=== PATIENT | male | born 1935 | race Caucasian/White ===

== ENCOUNTER 2017-01-30 00:22 | Emergency (ER) | payer MEDICAID, MEDICARE ==
[~2017-01-30] VITALS: Ht 167.6 cm; Wt 72.6 kg
[2017-01-30] MEDS ORDERED: DIPHTH,PERTUSS(ACELL),TET TOX 0.5 ML DISP.SYRIN. VAX IM ONE (02:00)
--- NOTE | 2017-01-30 02:47 | RAD ---
CT HEAD AND CERVICAL SPINE WITHOUT CONTRAST History: Fall, pain within the head and neck. Comparison: None. Procedure: Axial images are obtained of the head from the skull base through the vertex without IV contrast. Noncontrast helical CT of the cervical spine was performed. Axial, sagittal, and coronal reconstructions were obtained. PQRS compliance statement: One or more of the following individualized dose reduction techniques were utilized for this examination: 1. Automated exposure control 2. Adjustment of the mA and/or kV according to patient size 3. Use of iterative reconstruction technique Head Findings: The ventricles and sulci are normal for the patient's age. No mass-effect, midline shift, hemorrhage or extra-axial fluid collection is identified. Periventricular and subcortical white matter low-attenuation is present, nonspecific although suggestive of chronic microvascular ischemia. Bone windows demonstrate no significant calvarial abnormality. Trace mucosal thickening is present in the visualized paranasal sinuses. Mastoid air cells are well aerated. Cervical Spine Findings: There is no evidence of acute fracture or dislocation. Normal cervical lordosis and alignment is maintained. Vertebral body heights are maintained. Posterior elements are intact. Prominent degenerative changes are present throughout. Visualized soft tissues of the neck demonstrate no acute finding. The visualized lung apices are clear. IMPRESSION: 1. No acute intracranial abnormality. Chronic findings present. 2. No acute fracture of the cervical spine. Degenerative changes present throughout. Electronically signed by: Nella Rahman MD (01/30/2017 2:44 AM)
[2017-01-30 02:54] VITALS: BP 121/65
--- NOTE | 2017-01-30 03:00 | PHYS DOC ---
Past Medical History Past Medical History: CAD, Constipation, CVA, Dementia, Depression, Diabetes- Type II, High Cholesterol, Hypertension, TIA Additional Past Medical Histor: chronic gastritis,allergies,pvd,osteoarthritis, Past Surgical History: No Surgical History Alcohol Use: None Drug Use: None Adult General Chief Complaint Chief Complaint: MECHANICAL FALL HPI HPI 81-year-old male sent from [facility] evaluation of minor head injury. Patient fell to floor and struck the back of his head. He has a very small abrasion. No soft tissue swelling. Patient's mental status has been baseline he is alert and communicative cooperative and has no complaints. He was sent for evaluation out of an abundance of caution. Review of Systems Review of Systems Constitutional: Denies fever or chills [] Eyes: Denies change in visual acuity, redness, or eye pain [] HENT: Denies nasal congestion or sore throat [] Respiratory: Denies cough or shortness of breath [] Cardiovascular: No additional information not addressed in HPI [] GI: Denies abdominal pain, nausea, vomiting, bloody stools or diarrhea [] : Denies dysuria or hematuria [] Musculoskeletal: Denies back pain or joint pain [] Integument: Denies rash or skin lesions [] Neurologic: Denies headache, focal weakness or sensory changes [] Endocrine: Denies polyuria or polydipsia [] Current Medications Current Medications Current Medications Medications (Trade) Dose Ordered Sig/Steve Start Time Stop Time Status Last Admin Dose Admin Diphtheria/ Tetanus/Acell Pertussis (Boostrix) 0.5 ml ONCE ONCE 01/30/17 02:00 01/30/17 02:01 DC 01/30/17 03:18 0.5 ML Allergies Allergies Allergies Coded Allergies Type Severity Reaction Last Updated Verified cholestyramine Allergy Unknown unknown 01/30/17 Yes rosuvastatin Allergy Unknown unknown 01/30/17 Yes simvastatin Allergy Unknown unknown 01/30/17 Yes Physical Exam Physical Exam Elderly male smiling comfortable appearing no acute distress. No scalp hematoma. 2 x 2 centimeter trace abrasion parieto-occipital scalp with no hematoma or bony tenderness or crepitus. Nonfocal neurologic exam. Totally benign exam with no pathologic findings. Normal TMs bilaterally with no evidence of hemotympanum. No Reyes sign. Normal painless range of motion of C- spine Constitutional: Well developed, well nourished, no acute distress, non-toxic appearance. [] HENT: Normocephalic, atraumatic, bilateral external ears normal, oropharynx moist, no oral exudates, nose normal. [] Eyes: PERRLA, EOMI, conjunctiva normal, no discharge. [] Neck: Normal range of motion, no tenderness, supple, no stridor. [] Cardiovascular:Heart rate regular rhythm, no murmur [] Lungs & Thorax: Bilateral breath sounds clear to auscultation [] Abdomen: Bowel sounds normal, soft, no tenderness, no masses, no pulsatile masses. [] Skin: Warm, dry, no erythema, no rash. [] Back: No tenderness, no CVA tenderness. [] Extremities: No tenderness, no cyanosis, no clubbing, ROM intact, no edema. [] Neurologic: Alert and oriented X 3, normal motor function, normal sensory function, no focal deficits noted. [] Psychologic: Affect normal, judgement normal, mood normal. [] Current Patient Data Vital Signs Vital Signs Date Time Temp Pulse Resp B/P (MAP) Pulse Ox O2 Delivery O2 Flow Rate FiO2 01/30/17 02:54 66 18 121/65 (83) 95 Room Air 01/30/17 00:25 98.4 98.4 EKG EKG [] Radiology/Procedures Radiology/Procedures [] Course & Med Decision Making Course & Med Decision Making Pertinent Labs and Imaging studies reviewed. (See chart for details) Status post minor head injury. No evidence of postconcussive syndrome. Nonfocal neurologic exam no evidence of skull fracture or C-spine injury. CT of the head and C-spine negative. No further workup or treatment indicated. Patient agrees with outpatient follow-up. Strict return precautions given. [] Dragon Disclaimer Dragon Disclaimer This electronic medical record was generated, in whole or in part, using a voice recognition dictation system. Departure Departure Impression: Primary Impression: Minor head injury Additional Impressions: Scalp contusion Scalp abrasion Disposition: 01 HOME, SELF-CARE Condition: STABLE Referrals: RADHA FRANKLIN MD (PCP) Patient Instructions: Facial or Scalp Contusion, [id number], Head Injury, Adult Additional Instructions: You have suffered a minor head injury this evening. He had a contusion or bruise G her scalp. A small abrasion on the surface of your scalp prompted us to update your tetanus shot. The tetanus shot also include coverage for diphtheria which means whooping cough and this Will be good for 5 years so make a note on your medical record.. Follow-up with your doctor tomorrow and return immediately for new severe or worsening symptoms Problem Qualifiers GILDA MILLER MD Jan 30, 2017 02:59
== END 2017-01-30 04:11 | disposition home or self-care (01) ==
LOC: ER 00:22
DX: S00.03XA Contusion of scalp, initial encounter (principal); S00.01XA Abrasion of scalp, initial encounter; I25.10 Atherosclerotic heart disease of native coronary artery without angina pectoris; F03.90 Unspecified dementia, unspecified severity, without behavioral disturbance, psychotic disturbance, mood disturbance, and anxiety; F32.9 Major depressive disorder, single episode, unspecified; E11.9 Type 2 diabetes mellitus without complications; E78.00 Pure hypercholesterolemia, unspecified; I10 Essential (primary) hypertension; I73.9 Peripheral vascular disease, unspecified; M19.90 Unspecified osteoarthritis, unspecified site; Z88.8 Allergy status to other drugs, medicaments and biological substances; Z86.73 Personal history of transient ischemic attack (TIA), and cerebral infarction without residual deficits; W01.198A Fall on same level from slipping, tripping and stumbling with subsequent striking against other object, initial encounter; Y93.89 Activity, other specified; Y92.89 Other specified places as the place of occurrence of the external cause; Y99.8 Other external cause status
CPT/HCPCS: 70450; 72125; 90471; 90715; 99284-25

== ENCOUNTER 2017-05-05 08:33 | Emergency (ER) | payer MEDICARE ==
[~2017-05-05] VITALS: Ht 167.6 cm; Wt 72.6 kg
--- NOTE | 2017-05-05 09:02 | EKG ---
[facility] [address] [place] [address] Test Date: 2017-05-05 Test Time: 08:52:44 Pat Name: RYLAN BAPTISTE Department: Room: Gender: [employer]ic: : 1935 Requested By: MILA LAINEZ Order Number: [id number] Reading MD: Measurements Intervals [place] Rate: 59 P: MD: QRS: -4 QRSD: 86 T: -27 QT: 420 QTc: 420 Interpretive Statements ATRIAL FIBRILLATION LEFTWARD AXIS QRS(T) CONTOUR ABNORMALITY CANNOT RULE OUT ANTEROSEPTAL MYOCARDIAL DAMAGE CONSISTENT WITH INFERIOR INFARCT AGE UNDETERMINED RI6.01 Unconfirmed report No previous ECG available for comparison
--- NOTE | 2017-05-05 09:24 | RAD ---
Portable chest, 05/05/2017: History: Syncope There has been a previous median sternotomy. The depth of inspiration is suboptimal with minimal right basilar atelectasis. The heart size and pulmonary vascularity are within normal limits. No left lung infiltrate is seen. There is no evidence of pleural fluid. Mild degenerative changes are present in the spine. IMPRESSION: Suboptimal depth of inspiration with minimal right basilar atelectasis.
[2017-05-05 09:31] LABS: BASO % 1 % (0-3); EOS % 3 % (0-3); HEMATOCRIT 40.3 % (39.0-53.0); HEMOGLOBIN 14.3 g/dL (13.0-17.5); LYMPH % 36 % (24-48); MEAN CORPUSCULAR HEMOGLOBIN 33 pg (25-35); MEAN CORPUSCULAR HGB CONC 36 g/dL (31-37); MEAN CORPUSCULAR VOLUME 93 fL (79-100); MONO % 10 % (0-9); NEUT % 51 % (31-73); PLATELET COUNT 171 x10^3/uL (140-400); RED BLOOD COUNT 4.32 x10^6/uL (4.30-5.70); RED CELL DISTRIBUTION WIDTH 13.4 % (11.5-14.5); WHITE BLOOD COUNT 5.5 x10^3/uL (4.0-11.0)
--- NOTE | 2017-05-05 09:43 | PHYS DOC ---
Past Medical History Past Medical History: CAD, Constipation, CVA, Dementia, Depression, Diabetes- Type II, High Cholesterol, Hypertension, TIA Additional Past Medical Histor: chronic gastritis,allergies,pvd,osteoarthritis, Past Surgical History: No Surgical History Alcohol Use: None Drug Use: None Adult General Chief Complaint Chief Complaint: Fall HPI HPI Patient is a 82 year old male who presents with injuries from a fall. Patient was reportedly at his care home in his room with his roommate when he fell to the ground and struck his head. Patient did have a loss of consciousness for several seconds. It is unclear if the patient had a syncopal episode or had loss of consciousness after the fall. There are no blood thinners on the patient 's medical record, the patient is unable to give a clear history secondary to his dementia. Patient did not ambulate after the fall. EMS reports A. fib on the monitor. He has a left forearm laceration that is dressed upon arrival. Patient has not complaining of pain. Review of Systems Review of Systems History of systems lacking due to patient's history of dementia Current Medications Current Medications Current Medications Medications (Trade) Dose Ordered Sig/Steve Start Time Stop Time Status Last Admin Dose Admin Ketamine HCl 140 mg 1X ONCE 05/05/17 09:45 05/05/17 09:46 DC 05/05/17 09:51 140 MG Ondansetron HCl (Zofran) 4 mg 1X ONCE 05/05/17 11:15 05/05/17 11:16 DC Allergies Allergies Allergies Coded Allergies Type Severity Reaction Last Updated Verified cholestyramine Allergy Unknown unknown 01/30/17 Yes rosuvastatin Allergy Unknown unknown 01/30/17 Yes simvastatin Allergy Unknown unknown 01/30/17 Yes Physical Exam Physical Exam Constitutional: Well developed, well nourished, no acute distress, elderly, confused HENT: Normocephalic, goose-egg edema of the left forehead with small superficial laceration and 3 cm bleeding laceration non-gaping laceration just proximal to left lateral eyebrow, bilateral external ears normal, oropharynx moist, no oral exudates, nose normal. [] Eyes: PERRLA, EOMI, conjunctiva normal, no discharge. [] Neck: Normal range of motion, no tenderness, supple, no stridor. [] Cardiovascular:Heart rate irregular with regular rhythm, no murmur [] Lungs & Thorax: Bilateral breath sounds clear to auscultation [] Abdomen: Bowel sounds normal, soft, no tenderness, no masses, no pulsatile masses. [] Skin: Warm, dry, no erythema, no rash. [] Back: No midline stepoffs or tenderness, no CVA tenderness. [] Extremities: No tenderness, no cyanosis, no clubbing, ROM intact, no edema.lifts both legs off the bed Neurologic: Alert but not oriented, normal motor function, normal sensory function, intermittently slurred speech. He is beligerent in speech at times, somewhat agressive Current Patient Data Vital Signs Vital Signs Date Time Temp Pulse Resp B/P (MAP) Pulse Ox O2 Delivery O2 Flow Rate FiO2 05/05/17 10:25 97.8 61 18 97 05/05/17 08:39 181/79 (113) Room Air Lab Values Laboratory Tests Test 05/05/17 09:20 05/05/17 09:56 White Blood Count 5.5 x10^3/uL (4.0-11.0) Red Blood Count 4.32 x10^6/uL (4.30-5.70) Hemoglobin 14.3 g/dL (13.0-17.5) Hematocrit 40.3 % (39.0-53.0) Mean Corpuscular Volume 93 fL (79-100) Mean Corpuscular Hemoglobin 33 pg (25-35) Mean Corpuscular Hemoglobin Concent 36 g/dL (31-37) Red Cell Distribution Width 13.4 % (11.5-14.5) Platelet Count 171 x10^3/uL (140-400) Neutrophils (%) (Auto) 51 % (31-73) Lymphocytes (%) (Auto) 36 % (24-48) Monocytes (%) (Auto) 10 % (0-9) H Eosinophils (%) (Auto) 3 % (0-3) Basophils (%) (Auto) 1 % (0-3) Neutrophils # (Auto) 2.8 x10^3uL (1.8-7.7) Lymphocytes # (Auto) 2.0 x10^3/uL (1.0-4.8) Monocytes # (Auto) 0.6 x10^3/uL (0.0-1.1) Eosinophils # (Auto) 0.2 x10^3/uL (0.0-0.7) Basophils # (Auto) 0.0 x10^3/uL (0.0-0.2) Prothrombin Time 12.1 SEC (11.7-14.0) Prothrombin Time INR 1.0 (0.8-1.1) Sodium Level 140 mmol/L (136-145) Potassium Level 3.5 mmol/L (3.5-5.1) Chloride Level 100 mmol/L (98-107) Carbon Dioxide Level 29 mmol/L (21-32) Anion Gap 11 (6-14) Blood Urea Nitrogen 10 mg/dL (8-26) Creatinine 0.8 mg/dL (0.7-1.3) Estimated GFR (Cockcroft-Gault) 92.5 BUN/Creatinine Ratio 13 (6-20) Glucose Level 77 mg/dL (70-99) Calcium Level 9.7 mg/dL (8.5-10.1) Magnesium Level 1.7 mg/dL (1.8-2.4) L Total Bilirubin 0.6 mg/dL (0.2-1.0) Aspartate Amino Transferase (AST) 35 U/L (15-37) Alanine Aminotransferase (ALT) 55 U/L (16-63) Alkaline Phosphatase 43 U/L (46-116) L Ammonia < 10 mcmol/L (11-34) L Troponin I Quantitative < 0.017 ng/mL (0.000-0.055) CZ-Tpi-C-Type Natriuretic Peptide 243 pg/mL (0-449) Total Protein 7.3 g/dL (6.4-8.2) Albumin 4.0 g/dL (3.4-5.0) Albumin/Globulin Ratio 1.2 (1.0-1.7) Laboratory Tests 05/05/17 09:20 Laboratory Tests 05/05/17 09:56 EKG EKG 59 bpm, irregular, normal axis, normal intervals, likely A. fib, nonischemic T waves and interpreted by me[] Radiology/Procedures Radiology/Procedures Chest x-ray:IMPRESSION: Suboptimal depth of inspiration with minimal right basilar atelectasis. CT head/ neck: CT head without contrast, 05/05/2017: History: Fall, head trauma, dementia Comparison is made to a study from 01/30/2017. There is a moderate scalp hematoma in the left frontal region. No underlying fracture is identified. There are new small bilateral subdural hematomas over the cerebral convexities. On the coronal images these abnormal extra-axial densities measure approximately 5 mm in greatest thickness laterally on both sides.. There is a larger component of subdural blood along the right tentorium measuring 11 mm in greatest craniocaudad dimension. There is mild associated decrease in size of the lateral ventricles, more so on the right, compared to the 01/30/2017 study. There is a very slight right to left shift of the midline structures. Patchy deep white matter lucencies are again noted compatible with chronic ischemic change. There is moderate underlying cerebral atrophy. IMPRESSION: 1. Small acute subdural hematomas have developed over both cerebral convexities with extension along the right tentorium as described above. 2. Minimal associated lateral ventricular effacement and slight right to left midline shift. CT of the cervical spine without contrast, 05/05/2017: Noncontrast scans were obtained with multiplanar reconstructions produced. There is multilevel disc space narrowing and moderate marginal spurring, most severe at the C5-6 and C6-7 levels. There are moderate hypertrophic degenerative changes involving the facet joints bilaterally at multiple levels. The combination of findings is causing mild central spinal stenosis and foraminal stenosis at multiple levels. There is mild calcific plaquing at the carotid bifurcations. IMPRESSION: 1. Moderate multilevel degenerative change. 2. No acute bony abnormality is detected. Note: The findings were called to personnel in the [facility] ER at 10:50 AM on 05/05/2017. PQRS Compliance Statement: One or more of the following individualized dose reduction techniques were utilized for this examination: 1. Automated exposure control 2. Adjustment of the mA and/or kV according to patient size 3. Use of iterative reconstruction technique DICTATED and SIGNED BY: EMELIA KAUR MD DATE: 05/05/17 1033 CC: RADHA ZAPATA MD; MILA LAINEZ MD ~ Indication: left eyebrow laceration Procedure: The patient was placed in the appropriate position and it was glued with dermabond. Total repaired wound length: 3cm. Other Items: The patient tolerated the procedure well. Complications: none. Course & Med Decision Making Course & Med Decision Making Pertinent Labs and Imaging studies reviewed. (See chart for details) Pt monitored, ekg/labs/cxr/ct head and neck performed. Pt appears to be in no distress, no blood thinners. Lac closed with glue as pt is moving and difficult to keep still. 80 attempts to get the patient to the CT scanner but he would not lay still. Therefore we proceeded with sedation with ketamine. 1 mg/kg slow push of ketamine was given by me. Patient had Mallampati of 3, ASA of 2. Pt tolerated the sedation well and we're able to get the CT scan. It showed that he had bilateral subdural hematomas as well as supratentorial bleed on the right side. I spoke with neurosurgery here at our facility, Dr. Peralta. He believes the patient will require higher level of care [facility] I spoke with [facility] and they accepted the patient via the transfer nurse to Dr. Graciela Landa, trauma surgeon. We contacted EMS for transport, they came to take the patient to . I informed Dr. Zapata, the patient's PCP as well as patient's son, Sb Corral. He will be heading directly to . Total critical care time: 80 minutes Dragon Disclaimer Dragon Disclaimer This electronic medical record was generated, in whole or in part, using a voice recognition dictation system. Departure Departure Impression: Primary Impression: Closed head injury Additional Impressions: Subdural hematoma Bleeding in brain Disposition: 05 TRANSFER OTHER Condition: CRITICAL Referrals: RADHA ZAPATA MD (PCP) Problem Qualifiers MILA LAINEZ MD May 05, 2017 09:43
[2017-05-05] MEDS ORDERED: KETAMINE HCL 500 MG/10 ML VIAL. IV ONE (09:45)
[2017-05-05 10:16] LABS: CALCIUM 9.7 mg/dL (8.5-10.1); CREATININE 0.8 mg/dL (0.7-1.3); GFR 92.5; POTASSIUM 3.5 mmol/L (3.5-5.1)
[2017-05-05 10:19] LABS: PROTHROMBIN TIME PATIENT 12.1 SEC (11.7-14.0)
[2017-05-05 10:24] LABS: ALBUMIN/GLOBULIN RATIO 1.2 (1.0-1.7); MAGNESIUM 1.7 mg/dL (1.8-2.4); TOTAL BILIRUBIN 0.6 mg/dL (0.2-1.0); TOTAL PROTEIN 7.3 g/dL (6.4-8.2)
--- NOTE | 2017-05-05 10:52 | RAD ---
CT head without contrast, 05/05/2017: History: Fall, head trauma, dementia Comparison is made to a study from 01/30/2017. There is a moderate scalp hematoma in the left frontal region. No underlying fracture is identified. There are new small bilateral subdural hematomas over the cerebral convexities. On the coronal images these abnormal extra-axial densities measure approximately 5 mm in greatest thickness laterally on both sides.. There is a larger component of subdural blood along the right tentorium measuring 11 mm in greatest craniocaudad dimension. There is mild associated decrease in size of the lateral ventricles, more so on the right, compared to the 01/30/2017 study. There is a very slight right to left shift of the midline structures. Patchy deep white matter lucencies are again noted compatible with chronic ischemic change. There is moderate underlying cerebral atrophy. IMPRESSION: 1. Small acute subdural hematomas have developed over both cerebral convexities with extension along the right tentorium as described above. 2. Minimal associated lateral ventricular effacement and slight right to left midline shift. CT of the cervical spine without contrast, 05/05/2017: Noncontrast scans were obtained with multiplanar reconstructions produced. There is multilevel disc space narrowing and moderate marginal spurring, most severe at the C5-6 and C6-7 levels. There are moderate hypertrophic degenerative changes involving the facet joints bilaterally at multiple levels. The combination of findings is causing mild central spinal stenosis and foraminal stenosis at multiple levels. There is mild calcific plaquing at the carotid bifurcations. IMPRESSION: 1. Moderate multilevel degenerative change. 2. No acute bony abnormality is detected. Note: The findings were called to personnel in the [facility] ER at 10:50 AM on 05/05/2017. PQRS Compliance Statement: One or more of the following individualized dose reduction techniques were utilized for this examination: 1. Automated exposure control 2. Adjustment of the mA and/or kV according to patient size 3. Use of iterative reconstruction technique
[2017-05-05 11:10] VITALS: BP 156/61
[2017-05-05] MEDS ORDERED: ONDANSETRON PF 4 MG/2 ML VIAL. IV ONE (11:15)
== END 2017-05-05 11:20 | disposition short-term general hospital (02) ==
LOC: ER 08:33
DX: S06.5X9A Traumatic subdural hemorrhage with loss of consciousness of unspecified duration, initial encounter (principal); S01.112A Laceration without foreign body of left eyelid and periocular area, initial encounter; S51.812A Laceration without foreign body of left forearm, initial encounter; E11.9 Type 2 diabetes mellitus without complications; E78.00 Pure hypercholesterolemia, unspecified; F03.90 Unspecified dementia, unspecified severity, without behavioral disturbance, psychotic disturbance, mood disturbance, and anxiety; F32.9 Major depressive disorder, single episode, unspecified; I10 Essential (primary) hypertension; I48.91 Unspecified atrial fibrillation; I25.10 Atherosclerotic heart disease of native coronary artery without angina pectoris; Z86.73 Personal history of transient ischemic attack (TIA), and cerebral infarction without residual deficits; F43.10 Post-traumatic stress disorder, unspecified; Z88.8 Allergy status to other drugs, medicaments and biological substances; W18.09XA Striking against other object with subsequent fall, initial encounter; Y93.89 Activity, other specified; Y99.8 Other external cause status; Y92.89 Other specified places as the place of occurrence of the external cause
CPT/HCPCS: 12013; 36415; 70450; 71010; 72125; 80053; 82140; 83735; 83880; 84484; 85025; 85610; 93005; 99291; 99292; J3490; 99285-25